=== PATIENT | male | born 1960 | race Caucasian/White ===

== ENCOUNTER → 2018-07-24 | Outpatient (CLI) | payer BC ==
[~2018-07-24] MED LIST: ASPIRIN EC81 M1 PO; ASPIRIN325 PO; EFFIENT10 MG PO; LISINOPRIL5 MG PO; LOPRESSOR25 PO; MEVACOR40 MG PO; NITROGLYCERIN0.4 MG SL; NOHOMEMEDICATIONS; SIMVASTATIN40 MG PO; TOPROL XL25 MG PO
== END ==
LOC: NUC 07:20
DX: I25.10 Atherosclerotic heart disease of native coronary artery without angina pectoris (principal); F17.200 Nicotine dependence, unspecified, uncomplicated; Z95.5 Presence of coronary angioplasty implant and graft